=== PATIENT | male | born 1955 | race Caucasian/White ===

== ENCOUNTER 2022-10-03 14:42 | Outpatient (REF) | payer MEDICARE, MEDICAID, SELFPAY ==
[2022-10-03 09:12] LABS: Bilirubin Negative (Negative); Blood Trace-lysed (Negative); Clarity Clear (Clear); Glucose 100 mg/dL (Negative); Ketones Negative (Negative); Leukocyte Esterase Negative (Negative); Nitrite Negative (Negative); Specific Gravity >= 1.030 (1.005-1.025); Urobilinogen 0.2 mg/dL (Up to 0.2); pH 5.5 (5-8)
[2022-10-03 09:21] LABS: Bacteria Negative HPF (Negative); C & S Indicated? No; Casts Negative LPF (Negative); Crystals Negative HPF (Negative); Epithelial Cells Rare HPF (Negative); Mucus Trace (Negative); RBC 0-2 HPF (0-2); WBC 0-2 HPF (0-5)
--- OUTSIDE RECORDS SUMMARY | 2022-10-03 14:47 | XMS_ITS | Continuity of Care Document ---
Author Name Unknown Organization [facility] Address [address] [place] [address] Care Team Providers Care Oracle Soa Consultant Name Role Phone Ronen De Souza Primary Care Physician Encounter [facility] Date(s): 05/23/22 - 05/23/22 [facility] [address] [place] [address] Discharge Disposition: Home or Self Care Attending Physician: Mirza Soler DO Admitting Physician: Mirza Soler DO Allergies, Adverse Reactions, Alerts Substance Reaction Severity Status BEE VENOM PROTEIN (HONEY BEE) Unknown Active simvastatin Pain in legs Other Unknown Active losartan Muscle pain Unknown Active atorvastatin Muscle pain Unknown Active Assessment and Plan Future Appointments Future Scheduled Tests Laboratory* Creatinine 12/11/21 Immunizations Given and Recorded Vaccine Date Status Refusal Reason pneumococcal 13-valent conjugate vaccine 06/01/21 Recorded influenza virus vaccine, live 05/23/21 Recorded SARS-CoV-2 (COVID-19) mRNA BNT-162b2 vax 04/25/21 Recorded SARS-CoV-2 (COVID-19) mRNA BNT-162b2 vax 09/08/20 Recorded SARS-CoV-2 (COVID-19) mRNA BNT-162b2 vax 08/18/20 Recorded influenza, unspecified formulation 06/27/20 Record ed influenza, unspecified formulation 07/03/19 Record ed influenza, unspecified formulation 05/05/18 Record ed tetanus-diphth toxoids (Td) adult/adol 1 10/16/18 Recorded pneumococcal 23-polyvalent vaccine 07/05/08 Record ed tetanus/diphth/pertuss (Tdap) adult/adol 07/05/08 Recorded 1Result Comment: tolerated well Medications B-D UF III SHORT PEN NEED MIS B-D UF III SHORT PEN NEED MIS, See Instructions, USE 1 NEW PEN NEEDLE FOR EACH FIVE TIMES DAILY INJECTION, # 400 EA, 0 Refill(s), Pharmacy: [place] [id number] Start Date: 12/22/21 Status: Ordered dofetilide 125 mcg oral capsule 125 mcg = 1 cap, Oral, BID, In the morning Start Date: 02/19/22 Status: Ordered Eliquis 5 mg oral tablet See Instructions, Take 1 tablet by mouth twice daily, # 180 tab, 3 Refill(s), Pharmacy: [place] [id number] Start Date: 12/24/21 Status: Ordered EpiPen 2-Keith 0.3 mg injectable kit 0.3 mg = 1 EA, IM, PRN other (see comment), As needed. Start Date: 02/19/22 Status: Ordered furosemide 40 mg oral tablet See Instructions, Take 1 tablet by mouth once daily, # 90 tab, 3 Refill(s), Pharmacy: [facility] [id number] Start Date: 12/24/21 Status: Ordered HumaLOG 100 units/mL injectable solution See Instructions, 20 units with meal If you eat a light meal, take 5 units less than your usual dose and if you eat a heavy meal, take 5 units more than your usual dose. If you skip a meal or if yourBG <80 , do not take per End Start Date: 02/19/22 Status: Ordered Levemir FlexTouch 100 units/mL subcutaneous solution See Instructions, 50 units before breakfast and 50 units before bedtime Start Date: 02/19/22 Status: Ordered lisinopril 2.5 mg oral tablet 2.5 mg = 1 tab, Oral, every evening Start Date: 02/19/22 Status: Ordered LORazepam 1 mg oral tablet 1 mg = 1 tab, Oral, every night at bedtime, PRN as needed for anxiety, X 30 days, # 30 tab, 1 Refill(s), 07/21/22 15:54:00 EST, Pharmacy: [place] [id number] Start Date: 05/22/22 Stop Date: 07/21/22 Status: Ordered Metoprolol Succinate ER 25 mg oral tablet, extended release 25 mg = 1 tab, Oral, BID, 0 Refill(s) Start Date: 02/19/22 Status: Ordered nitroglycerin 0.4 mg sublingual tablet 0.4 mg = 1 tab, SL, every 5 min, PRN Chest pain, x3. Seek medical attention if chest pain not resolved Start Date: 02/19/22 Status: Ordered NovoLOG FlexPen 100 units/mL injectable solution See Instructions, Inject 15 to 30 units subcutaneously three times daily with meals. Start Date: 02/19/22 Status: Ordered omeprazole 20 mg oral delayed release capsule 1 cap, Oral, Daily, # 90 cap, 0 Refill(s), Pharmacy: [facility] Start Date: 04/03/22 Status: Ordered One Touch Verio Test Strips 1 strip(s) twice a day., Supply, See instructions Start Date: 02/19/22 Status: Ordered OneTouch Delica Lancets 33 gauge OneTouch Delica Lancets 33 gauge, See Instructions, 1 lancet twice a day diagnosis code E11.9 Start Date: 02/19/22 Status: Ordered sildenafil 20 mg oral tablet 20 mg = 1 tab, Oral, As Directed, PRN other (see comment), As needed., 0 Refill(s) Start Date: 02/19/22 Status: Ordered spironolactone 25 mg oral tablet 12.5 mg = 0.5 tab, Oral, Daily Start Date: 02/19/22 Status: Ordered tamsulosin 0.4 mg oral capsule 0.8 mg = 2 cap, Oral, Daily, # 90 cap, 3 Refill(s), Pharmacy: [facility] Start Date: 12/12/21 Status: Ordered Trulicity Pen 4.5 mg/0.5 mL subcutaneous solution 0.5 mL, Subcutaneous, every week, DOSE CHANGE., # 12 mL, 2 Refill(s), Pharmacy: [facility] Start Date: 05/05/22 Stop Date: 08/03/22 Status: Ordered Problem List Condition Confirmation Course Effective Dates Status H ealth Status Informant Anxiety Confirmed Active Asthma Confirmed Active Atrial fibrillation Confirmed 12/02/18 Active Depressive disorder Confirmed Active Impotence Confirmed Active Gastro-esophageal reflux disease with esophagitis Confirmed 04/15/18 Active Hyperlipidemia Confirmed Active Hypertensive disorder Confirmed Active Insomnia Confirmed Active Prostate cancer Confirmed Active Nicotine dependence Confirmed Active Type 2 diabetes mellitus without complication Confirmed Active Procedures Procedure Date Related Diagnosis Body Site Status Colonoscopy 10/10/21 Completed Colonoscopy 1 09/09/21 Completed Cardiac electrophysiology, a blation procedure 07/01/19 Completed Cardiac catheterization 2 05/12/19 Completed Colonoscopy 3 05/06/17 Completed EGD - Esophagogastroduodenoscopy 4 05/06/17 Completed 1hot snare polypectomy,bx of right colon polyp with placement of submucosal of tattoo 2At [facility] [place]: three vessel disease LAD, LCX and RCA. 3polyps, diverticulosis, hemorrhoids 4esophagitis Results Laboratory List Name Date Basic Metabolic Panel (BMP) 05/23/22 Most recent to oldest [Reference Range]: 1 BUN [7-18 mg/dL] 20 mg/dL *HI* (05/23/22 11:09 AM) Glucose Level [74-106 mg/dL] 107 mg/dL *HI* (05/23/22 11:09 AM) Potassium Level [3.5-5.1 mmol/L] 4.0 mmo l/L (05/23/22 11:09 AM) Sodium Level [136-145 mmol/L] 141 mmol/L (05/23/22 11:09 AM) Calcium Level [8.5-10.1 mg/dL] 8.9 mg/dL (05/23/22 11:09 AM) CO2 [21-32 mmol/L] 26 mmol/L (05/23/22 11:09 AM) eGFR Non-AA [>=60] 93 (05/23/22 11:09 AM) eGFR AA [>=60] 93 (05/23/22 11:09 AM) Chloride Level [98-107 mmol/L] 103 mmol/ L (05/23/22 11:09 AM) Creatinine Level [0.70-1.30 mg/dL] 0.89 mg/dL (05/23/22 11:09 AM) Social History Social History Type Response Tobacco Current everyday tob acco user Tobacco Use:. 4-5 cigs a day per day. Sex Male Patient Care team information Care Team Personnel Name: Ronen De Souza MD Position: Physician Member Role: Primary Care Physician Address: Address: [address] [place] [phone] [place] Care Team Related Persons Name: RADHA JORDAN Address: Home [address] [place] [phone] Name: ALFONSO JORDAN Address: Home
--- OUTSIDE RECORDS SUMMARY | 2022-10-03 14:47 | XMS_ITS | Continuity of Care Document ---
Author Name Unknown Organization [facility] Address [address] [place] [address] Care Team Providers Care Precision Structural Metal Fitter Name Role Phone Ronen De Souza Primary Care Physician [phone] Encounter [facility]_[place] Date(s): 09/27/22 - 09/27/22 [facility] [address] [place] [address] Discharge Disposition: Home or Self Care Attending Physician: Ronen De Souza MD Admitting Physician: Ronen De Souza MD Referring Physician: Ronen De Souza MD Allergies, Adverse Reactions, Alerts Substance Reaction Severity Status BEE VENOM PROTEIN (HONEY BEE) Unknown Active simvastatin Pain in legs Other Unknown Active losartan Muscle pain Unknown Active atorvastatin Muscle pain Unknown Active Adhesive Bandage Urticaria Mild Active Assessment and Plan Future Appointments Future Scheduled Tests Laboratory* Creatinine 12/11/21 Radiology* CT Neck Soft Tissue w/ Contrast 09/24/22 * CT Low Dose Lung Screening 09/24/22 Immunizations Given and Recorded Vaccine Date Status Refusal Reason influenza virus vaccine, inactivated 1, 2 09/24/22 Given pneumococcal 13-valent conjugate vaccine 06/01/21 Recorded influenza virus vaccine, live 05/23/21 Recorded SARS-CoV-2 (COVID-19) mRNA BNT-162b2 vax 04/25/21 Recorded SARS-CoV-2 (COVID-19) mRNA BNT-162b2 vax 09/08/20 Recorded SARS-CoV-2 (COVID-19) mRNA BNT-162b2 vax 08/18/20 Recorded influenza, unspecified formulation 06/27/20 Record ed influenza, unspecified formulation 07/03/19 Record ed influenza, unspecified formulation 05/05/18 Record ed tetanus-diphth toxoids (Td) adult/adol 3 4/5/19 Recorded pneumococcal 23-polyvalent vaccine 07/05/08 Record ed tetanus/diphth/pertuss (Tdap) adult/adol 07/05/08 Recorded 1Early/Late Reason: Early/Late Reason: Back-charting an earlier dose 2Result Comment: Flu ad Quad 65+. Vaccine verified with NARAYAN Isbell. Teaching done. Well tolerated by patient. 3Result Comment: tolerated well Medications albuterol 90 mcg/inh aerosol inhaler 1 Refill(s), 0 Refill(s) Start Date: 08/21/22 Status: Ordered B-D UF III SHORT PEN NEED MIS B-D UF III SHORT PEN NEED MIS, See Instructions, USE 1 NEW PEN NEEDLE FOR EACH FIVE TIMES DAILY INJECTION, # 400 EA, 0 Refill(s), Pharmacy: [facility] [place] [id number] Start Date: 12/22/21 Status: Ordered bicalutamide 50 mg oral tablet 60 EA, START TAKING TODAY, AND TAKE DAILY DURING RADIATION. YOU CAN STOP WHEN RADIATION IS COMPLETE, 0 Refill(s) Start Date: 08/21/22 Status: Ordered clotrimazole-betamethasone dipropionate 1%-0.05% topical cream 1 otis, Topical, BID, apply to affected area twice a day for two weeks. If no effect, report to PCP., # 15 g, 0 Refill(s), Pharmacy: [place] [id number] Start Date: 05/27/22 Status: Ordered dofetilide 125 mcg oral capsule 125 mcg = 1 cap, Oral, BID, In the morning Start Date: 02/19/22 Status: Ordered Eliquis 5 mg oral tablet See Instructions, Take 1 tablet by mouth twice daily, # 180 tab, 3 Refill(s), Pharmacy: [facility] Start Date: 12/24/21 Status: Ordered EpiPen 2-Keith 0.3 mg injectable kit 0.3 mg = 1 EA, IM, Once, PRN other (see comment), As needed., # 1 kits, 1 Refill(s), Pharmacy: [facility] Start Date: 09/24/22 Status: Ordered ezetimibe 10 mg oral tablet 90 EA, TAKE 1 TABLET BY MOUTH ONCE DAILY, 0 Refill(s) Start Date: 08/21/22 Status: Ordered furosemide 40 mg oral tablet See Instructions, Take 1 tablet by mouth once daily, # 90 tab, 3 Refill(s), Pharmacy: [facility] Start Date: 12/24/21 Status: Ordered HumaLOG 100 [...] per End Start Date: 02/19/22 Status: Ordered insulin, needles 4 Refill(s), Use to inject 5 times daily. DX:E11.69, 0 Refill(s) Start Date: 08/21/22 Status: Ordered Levemir FlexTouch 100 units/mL subcutaneous solution See Instructions, 50 units before breakfast and 50 units before bedtime Start Date: 02/19/22 Status: Ordered lisinopril 2.5 mg oral tablet 2.5 mg = 1 tab, Oral, every evening Start Date: 02/19/22 Status: Ordered LORazepam 1 mg oral tablet 1 mg = 1 tab, Oral, every day at bedtime, PRN as needed for anxiety, # 30 tab, 0 Refill(s), Pharmacy: [facility] [place] [id number] Start Date: 09/14/22 Status: Ordered Metoprolol Succinate ER 25 mg oral tablet, extended release 25 mg = 1 tab, Oral, BID, # 180 tab, 3 Refill(s), Pharmacy: [facility] [place] [id number] Start Date: 06/18/22 Status: Ordered nitroglycerin 0.4 mg sublingual tablet [...] 1 cap, Oral, Daily, # 90 cap, 3 Refill(s), Pharmacy: [facility] [place] [id number] Start Date: 09/27/22 Status: Ordered One Touch Verio Test Strips 1 strip(s) twice a day., Supply, See instructions Start Date: 02/19/22 Status: Ordered sildenafil 20 mg oral tablet 20 mg = 1 tab, Oral, As Directed, PRN other (see comment), As needed., 0 Refill(s) Start Date: 02/19/22 Status: Ordered spironolactone 25 mg oral tablet 12.5 mg = 0.5 tab, Oral, Daily, # 45 tab, 3 Refill(s), Pharmacy: [facility] Start Date: 09/27/22 Status: Ordered tamsulosin 0.4 mg oral capsule 0.8 mg = 2 cap, Oral, Daily, # 180 cap, 3 Refill(s), Pharmacy: [facility] Start Date: 06/12/22 Status: Ordered Trulicity Pen 1.5 mg/0.5 mL subcutaneous solution 1.5 mg = 0.5 mL, Subcutaneous, every week, rotate injection sites, # 2 mL, 3 Refill(s), Pharmacy: [facility] Start Date: 08/09/22 Status: Ordered Trulicity Pen 3 mg/0.5 mL subcutaneous solution 3 mg = 0.5 mL, Subcutaneous, every week, rotate injection sites, # 2 mL, 3 Refill(s), Pharmacy: [facility] Start Date: 08/09/22 Status: Ordered Trulicity Pen 4.5 mg/0.5 mL subcutaneous solution 0.5 mL, Subcutaneous, every week, DOSE CHANGE., # 12 mL, 2 Refill(s), Pharmacy: [facility] Start Date: 05/05/22 Stop Date: 08/03/22 Status: Ordered Problem List Condition Confirmation Course Effective Dates Status H ealth Status Informant Anxiety Confirmed Active Asthma Confirmed Active Atrial fibrillation Confirmed 12/02/18 Active Atrial fibrillation with rapid ventricular response Confirmed 11/25/18 Active Atypical chest pain Confirmed 11/02/18 Active Cerebrovascular accident Confirmed 05/12/19 Active Depressive disorder Confirmed Active Dizziness Confirmed 11/02/18 Active Impotence Confirmed Active Fatigue Confirmed 11/02/18 Active Gastro-esophageal reflux disease with esophagitis Confirmed 04/15/18 Active Heart failure with reduced ejection fraction Confirmed 05/11/19 Active Hyperlipidemia Confirmed Active Hypertensive disorder Confirmed Active Insomnia Confirmed Active Ischemic myocardial dysfunction Confirmed 06/27/19 Active Prostate cancer Confirmed Active Nicotine dependence Confirmed Active Smoker Confirmed 11/02/18 Active Type 2 diabetes mellitus Confirmed 11/02/18 Active Type 2 diabetes mellitus without complication Confirmed Active Procedures Procedure Date Related Diagnosis Body Site Status Colonoscopy 10/10/21 Completed Colonoscopy 1 09/09/21 Completed Cardiac electrophysiology, a blation procedure 07/01/19 Completed Cardiac catheterization 2 05/12/19 Completed Colonoscopy 3 05/06/17 Completed EGD - Esophagogastroduodenoscopy 4 05/06/17 Completed 1hot snare polypectomy,bx of right colon polyp with placement of submucosal of tattoo 2[place] [facility] [place] three vessel disease LAD, LCX and RCA. 3polyps, diverticulosis, hemorrhoids 4esophagitis Results Laboratory List Name Date Basic Metabolic Panel 09/27/22 Hemoglobin A1c 09/27/22 Most recent to oldest [Reference Range]: 1 BUN [7-18 mg/dL] 15 mg/dL (09/27/22 2:23 PM) Glucose Level [74-106 mg/dL] 206 mg/dL *HI* (09/27/22 2:23 PM) Potassium Level [3.5-5.1 mmol/L] 3.3 mmo l/L *LOW* (09/27/22 2:23 PM) Sodium Level [136-145 mmol/L] 139 mmol/L (09/27/22 2:23 PM) Calcium Level [8.5-10.1 mg/dL] 9.0 mg/dL (09/27/22 2:23 PM) CO2 [21-32 mmol/L] 29 mmol/L (09/27/22 2:23 PM) eGFR Non-AA [>=60] 71 (09/27/22 2:23 PM) eGFR AA [>=60] 71 (09/27/22 2:23 PM) Hemoglobin A1c [4.0-6.0 %] 7.1 % *HI* (09/27/22 2:23 PM) Chloride Level [98-107 mmol/L] 102 mmol/ L (09/27/22 2:23 PM) Creatinine Level [0.70-1.30 mg/dL] 1.12 mg/dL (09/27/22 2:23 PM) Social History Social History Type Response Tobacco Current everyday tob acco user Tobacco Use:. 4-5 cigs a day per day. Sex Male Patient Care team information Care Team Personnel Name: Ronen De Souza MD Position: Physician Member Role: Primary Care Physician Address: Address: [address] [place] [id number] Care Team Related Persons Name: ALFONSO JORDAN Address: Home
--- OUTSIDE RECORDS SUMMARY | 2022-10-03 14:47 | XMS_ITS | Continuity of Care Document ---
Author Name Unknown Organization [facility] Address [address] [place] [address] Care Team Providers Care Mining Engineer Name Role Phone Ronen De Souza Primary Care Physician Encounter [facility] Date(s): 07/20/22 - 07/20/22 [facility] [address] [place] [address] Discharge Disposition: Home or Self Care Attending Physician: Silverio Barajas MD Admitting Physician: Silverio Barajas MD Referring Physician: Silverio Barajas MD Allergies, Adverse Reactions, Alerts Substance Reaction Severity Status BEE VENOM PROTEIN (HONEY BEE) Unknown Active simvastatin Pain in legs Other Unknown Active losartan Muscle pain Unknown Active atorvastatin Muscle pain Unknown Active Assessment and Plan Future Appointments Diagnostic Tests Pending * Testosterone [facility] 07/20/22 * PSA Ultrasensitive, S VARGAS 07/20/22 Future Scheduled Tests Laboratory* Creatinine 12/11/21 Immunizations [...] INJECTION, # 400 EA, 0 Refill(s), Pharmacy: [facility] [id number] Start Date: 12/22/21 Status: Ordered clotrimazole-betamethasone dipropionate 1%-0.05% topical cream 1 otis, Topical, BID, apply to affected area twice a day for two weeks. If no effect, report to PCP., # 15 g, 0 Refill(s), Pharmacy: [facility] [place] [id number] Start Date: 05/27/22 Status: Ordered dofetilide 125 mcg oral capsule 125 mcg = 1 cap, Oral, BID, In the morning Start Date: 02/19/22 Status: Ordered Eliquis 5 mg oral tablet See Instructions, Take 1 tablet by mouth twice daily, # 180 tab, 3 Refill(s), Pharmacy: [facility] [place] [id number] Start Date: 12/24/21 Status: Ordered EpiPen 2-Keith 0.3 mg injectable kit 0.3 mg = 1 EA, IM, PRN other (see comment), As needed. Start Date: 02/19/22 Status: Ordered furosemide 40 mg oral tablet See Instructions, Take 1 tablet by mouth once daily, # 90 tab, 3 Refill(s), Pharmacy: [facility] [id number] Start Date: 12/24/21 Status: Ordered HumaLOG 100 [...] tab, 1 Refill(s), 07/21/22 15:54:00 EST, Pharmacy: [facility] [place] [id number] Start Date: 05/22/22 Stop Date: 07/21/22 Status: Ordered Metoprolol Succinate ER 25 mg oral tablet, extended release 25 mg = 1 tab, Oral, BID, # 180 tab, 3 Refill(s), Pharmacy: [facility] [id number] Start Date: 06/18/22 Status: Ordered nitroglycerin 0.4 [...] Daily, # 90 cap, 0 Refill(s), Pharmacy: [facility] [place] [id number] Start Date: 06/24/22 Status: Ordered One Touch Verio Test Strips [...] Daily, # 180 cap, 3 Refill(s), Pharmacy: [facility] [place] [id number] Start Date: 06/12/22 Status: Ordered Trulicity Pen 4.5 mg/0.5 mL subcutaneous solution 0.5 mL, Subcutaneous, every week, DOSE CHANGE., # 12 mL, 2 Refill(s), Pharmacy: [facility] [id number] Start Date: 05/05/22 Stop Date: 08/03/22 Status: [...] with placement of submucosal of tattoo 2At [facility] [place]: three vessel disease LAD, LCX and RCA. 3polyps, diverticulosis, hemorrhoids 4esophagitis Results Laboratory List Name Date CBC w/ Diff 07/20/22 Comprehensive Metabolic Panel 07/20/22 Automated Diff 07/20/22 Most recent to oldest [Reference Range]: 1 WBC [5.0-10.0 x10^3/mcL] 8.8 x10^3/mcL (07/20/22 12:12 PM) RBC [4.6-6.0 x10^6/mcL] 5.3 x10^6/mcL (07/20/22 12:12 PM) Neutro Auto [40.0-75.0 %] 63.9 % (07/20/22 12:12 PM) Lymph Auto [20.0-50.0 %] 26.3 % (07/20/22 12:12 PM) [place]osa Auto [2.0-15.0 %] 6.5 % (07/20/22 12:12 PM) Basophil Auto [0.0-1.0 %] 0.5 % (07/20/22 12:12 PM) BUN [7-18 mg/dL] 15 mg/dL (07/20/22 12:12 PM) Glucose Level [74-106 mg/dL] 223 mg/dL *HI* (07/20/22 12:12 PM) Potassium Level [3.5-5.1 mmol/L] 3.0 mmo l/L *LOW* (07/20/22 12:12 PM) MCV [80.0-96.0] 88.2 (07/20/22 12:12 PM) AST [15-37 unit/L] 13 unit/L *LOW* (07/20/22 12:12 PM) ALT [16-63 unit/L] 17 unit/L (07/20/22 12:12 PM) MCHC [31.0-35.0 g/dL] 33.2 g/dL (07/20/22 12:12 PM) Sodium Level [136-145 mmol/L] 138 mmol/L (07/20/22 12:12 PM) Hct [41.0-51.0 %] 46.4 % (07/20/22 12:12 PM) Calcium Level [8.5-10.1 mg/dL] 8.2 mg/dL *LOW* (07/20/22 12:12 PM) Albumin Level [3.4-5.0 g/dL] 3.2 g/dL *LOW* (07/20/22 12:12 PM) Protein Total [6.4-8.2 g/dL] 7.4 g/dL (07/20/22 12:12 PM) MCH [26.0-32.0 pg] 29.3 pg (07/20/22 12:12 PM) Neutro Absolute 5.6 x10^3/mcL *NA* (07/20/22 12:12 PM) Bilirubin Total [0.2-1.0 mg/dL] 0.3 mg/d L (07/20/22 12:12 PM) Hgb [14.0-18.0 g/dL] 15.4 g/dL (07/20/22 12:12 PM) Alk Phos [46-146 unit/L] 145 unit/L (07/20/22 12:12 PM) Platelets [130-450 x10^3/mcL] 268 x10^3/ mcL (07/20/22 12:12 PM) CO2 [21-32 mmol/L] 25 mmol/L (07/20/22 12:12 PM) eGFR Non-AA [>=60] 78 (07/20/22 12:12 PM) eGFR AA [>=60] 78 (07/20/22 12:12 PM) Chloride Level [98-107 mmol/L] 102 mmol/ L (07/20/22 12:12 PM) RDW-CV [11.5-17.0 %] 14.2 % (07/20/22 12:12 PM) Imm Gran Auto [0.0-0.9 %] 0.5 % (07/20/22 12:12 PM) Creatinine Level [0.70-1.30 mg/dL] 1.04 mg/dL (07/20/22 12:12 PM) Eos, Auto [1.0-6.0 %] 2.3 % (07/20/22 12:12 PM) Social History Social History Type Response Tobacco Current everyday tob acco user Tobacco Use:. 4-5 cigs a day per day. Sex Male Patient Care team information Personnel Name: Ronen De Souza MD Address: Address: [address] [place] [phone]
--- OUTSIDE RECORDS SUMMARY | 2022-10-03 14:47 | XMS_ITS | Continuity of Care Document ---
Author Name Unknown Organization [facility] Address [address] [place] [address] Care Team Providers Care Remittance Clerk Name Role Phone Ronen De Souza Primary Care Physician Encounter [facility] Date(s): 05/24/22 - 05/24/22 [facility] [address] [place] [address] Encounter Diagnosis Prostate cancer(Discharge Diagnosis) - 05/24/22 Discharge Disposition: Home or Self Care Attending Physician: Dax Kohler MD Admitting Physician: Dax Kohler MD Referring Physician: Dax Kohler MD Allergies, Adverse Reactions, Alerts Substance Reaction [...] INJECTION, # 400 EA, 0 Refill(s), Pharmacy: [facility] [id number] Start Date: 12/22/21 Status: Ordered dofetilide 125 mcg oral capsule 125 mcg = 1 cap, Oral, BID, In the morning Start Date: 02/19/22 Status: Ordered Eliquis 5 mg oral tablet See Instructions, Take 1 tablet by mouth twice daily, # 180 tab, 3 Refill(s), Pharmacy: [facility] [place] [address] Start Date: 12/24/21 Status: Ordered EpiPen 2-Keith 0.3 mg injectable kit 0.3 mg = 1 EA, IM, PRN other (see comment), As needed. Start Date: 02/19/22 Status: Ordered furosemide 40 mg oral tablet See Instructions, Take 1 tablet by mouth once daily, # 90 tab, 3 Refill(s), Pharmacy: [facility] [place] [address] Start Date: 12/24/21 Status: Ordered HumaLOG 100 [...] tab, 1 Refill(s), 07/21/22 15:54:00 EST, Pharmacy: [place] [address] Start Date: 05/22/22 Stop Date: 07/21/22 Status: [...] Daily, # 90 cap, 0 Refill(s), [facility] Start Date: 04/03/22 Status: Ordered One Touch [...] Daily, # 90 cap, 3 Refill(s), Pharmacy: [facility] Start Date: 12/12/21 Status: Ordered Trulicity Pen 4.5 mg/0.5 mL subcutaneous solution 0.5 mL, Subcutaneous, every week, DOSE CHANGE., # 12 mL, 2 Refill(s), [facility] Start Date: 05/05/22 Stop Date: 08/03/22 Status: [...] Site Status Colonoscopy 10/10/21 Completed Colonoscopy 1 2/27/22 Completed Cardiac electrophysiology, a blation procedure 07/01/19 Completed Cardiac catheterization 2 05/12/19 Completed Colonoscopy 3 05/06/17 Completed EGD - Esophagogastroduodenoscopy 4 05/06/17 Completed 1hot snare polypectomy,bx of right colon polyp with placement of submucosal of tattoo 2At [facility] [place]: three vessel disease LAD, LCX and RCA. 3polyps, diverticulosis, hemorrhoids 4esophagitis Social History Social History Type Response Tobacco Current everyday tob acco user Tobacco Use:. 4-5 cigs a day per day. Sex Male Patient Care team information Care Team Personnel Name: Ronen De Souza MD Position: Physician Member Role: Primary Care Physician Address: Address: [address] [place] [phone] Care Team Related Persons Name: RADHA JORDAN Address: Home [address] [place] [phone] Name: ALFONSO JORDAN Address: [place]
== END 2022-10-03 14:43 | disposition home or self-care (01) ==
LOC: LBN 14:42
PROVIDERS: Visit Provider Radiology Radiation Oncology
DX: C61 Malignant neoplasm of prostate (principal)
CPT/HCPCS: 81003; 81015

== ENCOUNTER 2022-11-01 16:05 | Outpatient (CLI) | payer MEDICARE, MEDICAID, SELFPAY ==
[2022-11-01 10:04] LABS: ALT 31 U/L (16-63); AST 15 U/L (15-37); Albumin 3.4 g/dL (3.4-5.0); Alkaline Phosphatase 146 U/L (46-116); Bilirubin, Direct 0.1 mg/dL (0.0-0.2); Bilirubin, Total 0.3 mg/dL (0.2-1.0); Total Protein 7.7 g/dL (6.4-8.2)
== END 2022-11-01 16:06 | disposition home or self-care (01) ==
LOC: LBO 16:06
PROVIDERS: Visit Provider Radiology Radiation Oncology
DX: C61 Malignant neoplasm of prostate (principal)
CPT/HCPCS: 36415; 80076

== ENCOUNTER 2024-01-13 12:02 | Emergency (ER) | payer MEDICARE, SELFPAY ==
[2024-01-13] VITALS (47 sets, daily range): BP systolic 74–144; BP diastolic 39–110; PULSE 60–155; RESP 14–30; O2SAT 96
--- NOTE | 2024-01-13 12:00 | RT.EKG_ITS ---
APPROVED REPORT Exam: Resting ECG Reason for Exam: increased heart rate Patient Location: E HR:146 bpm ECG Measurements Heart Rate 146 [place]IS [place] [id number] P [id number] QRSd 94 QRS -55 QT 334 T 54 QTc 521 Conclusion Atrial fibrillation 146 long QTC 521
--- NOTE | 2024-01-13 12:00 | DI.RAD_ITS ---
Exam(s) XR CHEST 2V PA LATERAL EXAM: XR CHEST 2V PA LATERAL CLINICAL HISTORY: afib w rvr. TECHNIQUE: 2D digital imaging was performed. COMPARISON: No exams were available for comparison FINDINGS: 2 views: Heart size is normal. The mediastinum is not widened. Lungs are clear. No infiltrates nor pleural effusions. IMPRESSION: No acute pulmonary findings. DATA REPOSITORY: RADIATION DOSE DELIVERED:
[2024-01-13 12:29] LABS: Abs Immature Grans 0.03 10^3/uL (0.0-0.06); Absolute Basophil Count 0.05 10^3/uL (0.0-0.2); Absolute Eosinophil Count 0.19 10^3/uL (0.0-0.7); Absolute Lymphocyte Count 1.53 10^3/uL (1.2-3.4); Absolute Monocyte Count 0.76 10^3/uL (0.1-0.8); Absolute Neutrophil Count 5.47 10^3/uL (1.2-6.7); Basophils % 0.6 %; Eosinophils % 2.4 %; HCT 44.1 % (40.0-50.0); HGB 14.7 g/dL (13.5-17.5); Immature Grans % 0.4 %; Lymphocytes % 19.1 %; MCH 30.1 pg (27.0-33.0); MCHC 33.3 % (32.0-36.0); MCV 90 fL (80-95); MPV 9.6 fL (8.0-11.0); Monocytes % 9.5 %; Platelet Count 227 10^3/uL (130-400); RBC 4.89 10^6/uL (4.36-5.78); RDW 13.7 % (11.8-14.1); WBC 8.03 10^3/uL (4.4-10.8)
--- NOTE | 2024-01-13 12:30 | ED.GENADUL_ITS ---
Discharge Plan Discharge Details Chief Complaint: Arrhythmia Primary Care Provider: Unknown,Unknown ED Provider: Reta Watkisn Home Meds and New Rx's Prescriptions: No Action albuterol sulfate 90 mcg/actuation HFA aerosol inhaler 2 puff inhalation Q6H PRN clotrimazole-betameth dip-zinc 1-0.05-20 % combo pack See Rx Instructions topical .COMPLEX Rx Instructions: apply CLOTRIMAZOLE/BETAMETHASONE CREAM twice daily: use ZINC OXIDE PASTE as needed/as directed topical dofetilide 125 mcg capsule 125 mcg PO BID Eliquis 5 mg tablet 5 mg PO BID epinephrine [EpiPen 2-Keith] 0.3 mg/0.3 mL auto-injector 0.3 mg IM ONCE PRN Rx Instructions: as a single dose; may repeat once ezetimibe 10 mg tablet 10 mg PO DAILY furosemide 40 mg tablet 40 mg PO DAILY insulin detemir U-100 100 unit/mL (3 mL) insulin pen 50 unit subcut BID lisinopril 2.5 mg tablet 2.5 mg PO DAILY lorazepam 1 mg tablet 1 mg PO QHS PRN metoprolol succinate 25 mg tablet extended release 24 hr 25 mg PO DAILY nitroglycerin 0.4 mg tablet, sublingual 0.4 mg sublingual Q5M PRN Rx Instructions: do not exceed 3 doses per episode insulin aspart U-100 [Novolog FlexPen U-100 Insulin] 100 unit/mL (3 mL) insulin pen See Rx Instructions subcut DAILY Rx Instructions: see instructions omeprazole 20 mg capsule,delayed release(DR/EC) 20 mg PO DAILY (DME) blood sugar diagnostic Strip See Rx Instructions .Route Rx Instructions: As directed sildenafil (pulm.hypertension) 20 mg tablet 20 mg PO DIRECTED Rx Instructions: administer doses at least 4-6 hours apart spironolactone 25 mg tablet 12.5 mg PO DAILY tacrolimus 0.1 % ointment 1 applic topical BID tamsulosin 0.4 mg capsule 0.8 mg PO DAILY Trulicity 4.5 mg/0.5 mL pen injector 4.5 mg subcut QWEEK celecoxib [Celebrex] 200 mg capsule 200 mg PO DAILY oxycodone-acetaminophen [Percocet] 5-325 mg tablet 1 tab PO TID PRN HPI General Date/Time Provider Initiated Documentation: 01/13/24 12:04 . HPI Narrative: Hilton is a 69-year-old male with history of A-fib with RVR, prostate cancer, diabetes, and CVA/TIA who presents to the emergency department today accompanied by his daughter for evaluation of shortness of breath with dizziness. He reports that symptoms started approximately 1 week ago. His daughter found that 2 days ago and has been trying to convince him to come to the emergency department since then. He denies fever, congestion, unusual headache, chest pain, palpitations, nausea/vomiting, change in bowel or bladder function, abdominal pain, black/tarry stools. He is treated with dofetilide, metoprolol, Eliquis. He does admit to intermittent constipation attributed to opioid use for chronic back pain. No history of GI bleeds. Related Data Home Medications Medication Instructions Recorded Confirmed albuterol sulfate 90 mcg/actuation 2 puff inhalation Q6H PRN 08/12/23 08/28/23 aerosol inhaler apixaban 5 mg tablet (Eliquis) 5 mg PO BID 08/12/23 08/28/23 blood sugar diagnostic 08/12/23 08/28/23 clotrimazole 1 %-betamethasone See Rx Instructions topical 08/12/23 08/28/23 0.05 % cream-zinc ox 20 % paste .COMPLEX topical dofetilide 125 mcg capsule 125 mcg PO BID 08/12/23 08/28/23 dulaglutide 4.5 mg/0.5 mL 4.5 mg subcut QWEEK 08/12/23 08/28/23 subcutaneous pen injector (Trulicity) epinephrine 0.3 mg/0.3 mL 0.3 mg IM ONCE PRN 08/12/23 08/28/23 injection, auto-injector (EpiPen 2-Keith) ezetimibe 10 mg tablet 10 mg PO DAILY 08/12/23 08/28/23 furosemide 40 mg tablet 40 mg PO DAILY 08/12/23 08/28/23 insulin aspart U-100 100 unit/mL See Rx Instructions subcut DAILY 08/12/23 08/28/23 (3 mL) subcutaneous pen (Novolog FlexPen U-100 Insulin aspart) insulin detemir U-100 100 unit/mL 50 unit subcut BID 08/12/23 08/28/23 (3 mL) subcutaneous pen lisinopril 2.5 mg tablet 2.5 mg PO DAILY 08/12/23 08/28/23 lorazepam 1 mg tablet 1 mg PO QHS PRN 08/12/23 08/28/23 metoprolol succinate 25 mg 25 mg PO DAILY 08/12/23 08/28/23 tablet,extended release 24 hr nitroglycerin 0.4 mg sublingual 0.4 mg sublingual Q5M PRN 08/12/23 08/28/23 tablet omeprazole 20 mg capsule,delayed 20 mg PO DAILY 08/12/23 08/28/23 release sildenafil (pulm.hypertension) 20 20 mg PO DIRECTED 08/12/23 08/28/23 mg tablet spironolactone 25 mg tablet 12.5 mg PO DAILY 08/12/23 08/28/23 tacrolimus 0.1 % topical ointment 1 applic topical BID 08/12/23 08/28/23 tamsulosin 0.4 mg capsule 0.8 mg PO DAILY 08/12/23 08/28/23 celecoxib 200 mg capsule (Celebrex) 200 mg PO DAILY 08/28/23 08/28/23 oxycodone-acetaminophen 5 mg-325 1 tab PO TID PRN 08/28/23 08/28/23 mg tablet (Percocet) Allergies Allergy/AdvReac Type Severity Reaction Status Date / Time adhesive Allergy Unknown Other (See Verified 08/28/23 07:19 Comment) bee venom protein (honey bee) Allergy Unknown Anaphylaxis Verified 08/28/23 07:19 atorvastatin AdvReac Unknown Other (See Verified 08/28/23 07:19 Comment) losartan AdvReac Unknown Other (See Verified 08/28/23 07:19 Comment) simvastatin AdvReac Unknown Other (See Verified 08/28/23 07:19 Comment) General Stated Complaint: Arrhythmia MIGUEL: 2 Review of Systems Narrative: see HPI Exam Const General: cooperative, healthy appearing, comfortable, no acute distress and well developed Nutritional Appearance: average body habitus HENMT Head: normal to inspection Eyes Conjunctivae: conjunctival abnormality and other (mild conjunctival pallor) Neck Neck: normal visual inspection and no JVD Resp Effort & Inspection: normal respiratory effort and able to speak in complete sentences Auscultation: clear to auscultation bilaterally Cardio Jugular venous pressure: no JVD Rate: tachycardic Rhythm: abnormal rhythm irregularly irregular Pulses: radial pulses present GI Inspection: normal to inspection and non-distended Palpation: soft and nontender Extrem General: no pedal edema Course Vital Signs Vital signs: Vital Signs Pulse 154 H 01/13/24 12:14 Respiratory Rate 18 01/13/24 12:14 Blood Pressure 128/94 H 01/13/24 12:14 Pulse Oximetry 96 01/13/24 12:14 Pulse 154 H 01/13/24 12:14 Respiratory Rate 18 01/13/24 12:14 Respiratory Effort Normal 01/13/24 12:21 Blood Pressure 128/94 H 01/13/24 12:14 Pulse Oximetry 96 01/13/24 12:14 Oxygen Delivery Method Room Air 01/13/24 12:14 Oxygen Flow Rate 0 01/13/24 12:14 Medical Decision Making Hilton is a 69-year-old male with history of A-fib with RVR, prostate cancer, diabetes, and CVA/TIA who presents to the emergency department today accompanied by his daughter for evaluation of shortness of breath with dizziness. He reports that symptoms started approximately 1 week ago. His daughter found that 2 days ago and has been trying to convince him to come to the emergency department since then. He denies fever, congestion, unusual headache, chest pain, palpitations, nausea/vomiting, change in bowel or bladder function, abdominal pain, black/tarry stools. He is treated with dofetilide, metoprolol, Eliquis. He does admit to intermittent constipation attributed to opioid use for chronic back pain. No history of GI bleeds. Physical exam reassuring. Irregularly irregular heart rate with tachycardia heart rate in the 130s to 140s noted. Patient is alert and oriented, no acute distress. Easy work of breathing, lung sounds clear bilaterally. Abdomen soft, nondistended, nontender to palpation. No obvious JVD or pedal edema noted. DDx includes but is not limited to: Paroxysmal A-fib, occult infection such as pneumonia, CHF, ACS, electrolyte imbalance, dehydration, thyroid dysfunction Upon arrival to the emergency department Hilton was found to be in A-fib with RVR. Discussed CODE STATUS, patient confirms he is full code. Metoprolol boluses of 2.5 mg followed by 5 mg administered without rate control, however patient did report that his shortness of breath and dizziness fully resolved aft er receiving his medications. A 25 mg IV push diltiazem bolus was given with temple to A-fib with rate 77. QTc now 496. I did review medical records from [facility] [place], office visit from 06/20/2023. Patient had an ablation performed on 07/02/2019. His most received echo showed EF 69%. Previous labs showed unremarkable BMP. Patient does have history of mixed cardiomyopathy, paroxysmal A-fib, DM, HTN, chronic opioid use due to back pain. Previous EKG (06/20/23) showed normal sinus rhythm with QTc 452. I independently interpreted the following tests: EKG shows A-fib with RVR, rate 146. Prolonged QTc, 521. CBC, CMP, TSH, troponin all reassuring. Chest x-ray performed, no acute cardiopulmonary findings. Overall workup today reassuring. Rate was able to be successfully controlled without negative sequela. Patient does have follow-up with cardiology, daughter was able to schedule follow-up appointment next week with cardiology, awaiting follow-up appointment with EP. Reviewed discharge instructions with patient, including red flags indicate need for return to emergency care. He is agreeable to plan of care. Imaging Data Radiologic Study: Radiologist's impression: Exam(s) XR CHEST 2V PA LATERAL EXAM: XR CHEST 2V PA LATERAL CLINICAL HISTORY: afib w rvr. TECHNIQUE: 2D digital imaging was performed. COMPARISON: No exams were available for comparison FINDINGS: 2 views: Heart size is normal. The mediastinum is not widened. Lungs are clear. No infiltrates nor pleural effusions. IMPRESSION: No acute pulmonary findings. Quality:SDOH Health Related Social Needs: No Data to Display PFSH All Active Problems (Updated 08/28/23 @ 09:22 by Jeremi Ramirez DO) Lumbar radiculopathy (Acute) Medical History (Updated 08/28/23 @ 09:22 by Jeremi Ramirez DO) Aftercare following left elbow joint replacement surgery History of transesophageal echocardiography (IVÁN) History of cardioversion Type 2 diabetes mellitus Smoker Prostate cancer Nicotine dependence Long-term use of high-risk medication Ischemic myocardial dysfunction Insomnia Impotence Hypertensive disorder Hyperlipemia Heart failure with reduced ejection fraction GERD (gastroesophageal reflux disease) Fatigue Dizziness Depressive disorder CVA (cerebral vascular accident) Cardiomyopathy Atypical chest pain Atrial fibrillation with rapid ventricular response Asthma Anxiety Surgical History History of esophagogastroduodenoscopy (EGD) Hx of cardiac cath H/O cardiac radiofrequency ablation H/O colonoscopy Family History (Updated 08/12/23 @ 14:14 by Veto French RN) Sister Diabetes Brother Myocardial infarct Father Myocardial infarct Sister Suicide Mother Suicide Social History Smoking/Tobacco Use Status: Current every day Tobacco Type: cigarettes Smoking packs per day: 0.25 Smoking cigarettes per day: 5.0 Smoking risk assessment performed?: Yes Alcohol Intake: former Year quit: 2012 Drug use: Daily Substance use type: marijuana Housing: house
[2024-01-13] MEDS: Metoprolol 5 MG/5 ML VIAL 2.5 MG IVP (12:35)
[2024-01-13 12:54] LABS: ALT 27 U/L (16-63); AST 12 U/L (15-37); Albumin 3.4 g/dL (3.4-5.0); Alkaline Phosphatase 159 U/L (46-116); Anion Gap 9.6 mmol/L (3-11); BUN 18 mg/dL (7-18); Bilirubin, Total 0.36 mg/dL (0.2-1.0); CO2 26.4 mmol/L (21.0-32.0); Chloride 105 mmol/L (98-107); Estimated GFR 80.47 (mL/min/1.73m2); Glucose 94 mg/dL (74-106); Potassium 3.7 mmol/L (3.5-5.1); Sodium 141 mmol/L (136-145); TSH (W/Ref FT4) 1.36 uIU/mL (0.36-3.74); Total Protein 7.2 g/dL (6.4-8.2); Troponin I < 50 ng/L (< or =60)
[2024-01-13] MEDS: Metoprolol 5 MG/5 ML VIAL IVP (13:05)
[2024-01-13] MEDS: dilTIAZem 25 MG/5 ML VIAL IVP (13:28)
--- NOTE | 2024-01-13 13:30 | RT.EKG_ITS ---
APPROVED REPORT Exam: Resting ECG Reason for Exam: ireg heart rate Patient Location: E HR:77 bpm ECG Measurements Heart Rate 77 AXIS HI [id number] P [id number] QRSd 97 QRS -54 QT 431 T 11 QTc 496 Conclusion Atrial fibrillation 77 no stemi
== END 2024-01-13 15:00 | disposition home or self-care (01) ==
PROVIDERS: Emergency Provider Nurse Practitioner Family
DX: I48.91 Unspecified atrial fibrillation (principal); R06.02 Shortness of breath; R42 Dizziness and giddiness; F17.200 Nicotine dependence, unspecified, uncomplicated
CPT/HCPCS: 80053; 93005; 96374; 96375; 96376; 99284; 71046; 84443; 84484; 85025; 93010; 99283

== ENCOUNTER 2024-01-17 15:08 | Emergency (ER) | payer MEDICARE, SELFPAY ==
[2024-01-17] VITALS (62 sets, daily range): BP systolic 75–147; BP diastolic 36–122; PULSE 69–146; RESP 11–32; TEMP 36.4; O2SAT 93–97
--- NOTE | 2024-01-17 15:00 | RT.EKG_ITS ---
APPROVED REPORT Exam: Resting ECG Reason for Exam: A-Fib Patient Location: E HR:128 bpm ECG Measurements Heart Rate 128 AXIS CA [id number] P [id number] QRSd 93 QRS -52 QT 330 T 78 QTc 482 Conclusion Atrial fibrillation RVR 128 no stemi
--- NOTE | 2024-01-17 15:30 | DI.RAD_ITS ---
Exam(s) XR PORTABLE CHEST AP EXAM: XR PORTABLE CHEST AP CLINICAL HISTORY: arrhythmia. TECHNIQUE: 2D digital imaging was performed. COMPARISON: CR XR CHEST 2V PA LATERAL from 01/13/2024 FINDINGS: Single AP portable view. Heart size is upper normal. The mediastinum is not widened. There is now mild infiltrate in left lung base. No obvious pleural effusions on this single view meenakshi dy. Right lung remains clear. IMPRESSION: Left lung base infiltrate. DATA REPOSITORY: RADIATION DOSE DELIVERED:
--- NOTE | 2024-01-17 15:35 | ED.GENADUL_ITS ---
Discharge Plan Disposition Patient Disposition: Home Condition: Stable Discharge Details Clinical Impression: Atrial fibrillation with rapid ventricular response Primary Care Provider: Unknown,Unknown ED Provider: Toño Sanford Home Meds and New Rx's Prescriptions: Continued albuterol sulfate 90 mcg/actuation HFA aerosol inhaler 2 puff inhalation Q6H PRN clotrimazole-betameth dip-zinc 1-0.05-20 % combo pack See Rx Instructions topical .COMPLEX Rx Instructions: apply CLOTRIMAZOLE/BETAMETHASONE CREAM twice daily: use ZINC OXIDE PASTE as needed/as directed topical dofetilide 125 mcg capsule 125 mcg PO BID Eliquis 5 mg tablet 5 mg PO BID epinephrine [EpiPen 2-Keith] 0.3 mg/0.3 mL auto-injector 0.3 mg IM ONCE PRN Rx Instructions: as a single dose; may repeat once ezetimibe 10 mg tablet 10 mg PO DAILY furosemide 40 mg tablet 40 mg PO DAILY insulin detemir U-100 100 unit/mL (3 mL) insulin pen 50 unit subcut BID lisinopril 2.5 mg tablet 2.5 mg PO DAILY lorazepam 1 mg tablet 1 mg PO QHS PRN metoprolol succinate 25 mg tablet extended release 24 hr 50 mg PO BID nitroglycerin 0.4 mg tablet, sublingual 0.4 mg sublingual Q5M PRN Rx Instructions: do not exceed 3 doses per episode insulin aspart U-100 [Novolog FlexPen U-100 Insulin] 100 unit/mL (3 mL) insulin pen See Rx Instructions subcut DAILY Rx Instructions: see instructions omeprazole 20 mg capsule,delayed release(DR/EC) 20 mg PO DAILY (DME) blood sugar diagnostic Strip See Rx Instructions .Route Rx Instructions: As directed sildenafil (pulm.hypertension) 20 mg tablet 20 mg PO DIRECTED Rx Instructions: administer doses at least 4-6 hours apart spironolactone 25 mg tablet 12.5 mg PO DAILY tacrolimus 0.1 % ointment 1 applic topical BID tamsulosin 0.4 mg capsule 0.8 mg PO DAILY Trulicity 4.5 mg/0.5 mL pen injector 4.5 mg subcut QWEEK celecoxib [Celebrex] 200 mg capsule 200 mg PO DAILY oxycodone-acetaminophen [Percocet] 5-325 mg tablet 1 tab PO TID PRN Discharge Instructions Instructions: Atrial fibrillation, Heart failure and atrial fibrillation Additional Instructions: You were seen in the emergency department for your atrial fibrillation with rapid ventricular response, your RVR responded to 1 dose of diltiazem with good rate control and may initiated your normal dosing of dofetilide here in the emergency department, you do not need to take your at home dose when you return home as we gave it here. Please take an extra dose of Lasix so 40 mg twice per day for 2 days, follow-up with your primary care provider. Take the home dose of Lasix this evening when you return home. Your cardiac workup was negative, there is a question of some mild infiltrate in the lungs but you did not have any respiratory distress or low O2 readings warranting any admission to the hospital. Please follow-up with your cardiology team as you have expressed desire for further ablation, you may need an updated echocardiogram. Please return to the emergency department for any further tacky arrhythmias, respiratory distress, increased peripheral swelling and weight gain, chest pain. Discharge Data Discharge Date/Time-TO BE ENTERED AT DEPARTURE: 01/17/24 20:01 HPI General Date/Time Provider Initiated Documentation: 01/17/24 15:26 . HPI Narrative: 69 year-old male presents to ED today by POV/ambulating with a chief complaint of fast heart beat- with a cramp in his L chest this morning that he took a nitro for- spontaneously resolved with onset around 1100 this morning. Quality described as mild CP, otherwise no symptoms since- patient has atrial fibrillation, has had to undergo multiple cardioversions, history of ablation, takes Lasix and spironolactone- often holds his fluid overload in belly and upper extremities, no radiation to active chest pain, shortness of breath, fever, cough, nausea/vomiting, dizziness, visual changes, near fainting. Severity is described as 0/10 for pain. Palliating factors include nothing attempted. Provoking factors include nothing specific. Patient is anticoagulated. Related Data Home Medications Medication Instructions Recorded Confirmed albuterol sulfate 90 mcg/actuation 2 puff inhalation Q6H PRN 08/12/23 01/17/24 aerosol inhaler apixaban 5 mg tablet (Eliquis) 5 mg PO BID 08/12/23 01/17/24 blood sugar diagnostic 08/12/23 01/17/24 clotrimazole 1 %-betamethasone See Rx Instructions topical 08/12/23 01/17/24 0.05 % cream-zinc ox 20 % paste .COMPLEX topical dofetilide 125 mcg capsule 125 mcg PO BID 08/12/23 01/17/24 dulaglutide 4.5 mg/0.5 mL 4.5 mg subcut QWEEK 08/12/23 01/17/24 subcutaneous pen injector (Trulicity) epinephrine 0.3 mg/0.3 mL 0.3 mg IM ONCE PRN 08/12/23 01/17/24 injection, auto-injector (EpiPen 2-Keith) ezetimibe 10 mg tablet 10 mg PO DAILY 08/12/23 01/17/24 furosemide 40 mg tablet 40 mg PO DAILY 08/12/23 01/17/24 insulin aspart U-100 100 unit/mL See Rx Instructions subcut DAILY 08/12/23 01/17/24 (3 mL) subcutaneous pen (Novolog FlexPen U-100 Insulin aspart) insulin detemir U-100 100 unit/mL 50 unit subcut BID 08/12/23 01/17/24 (3 mL) subcutaneous pen lisinopril 2.5 mg tablet 2.5 mg PO DAILY 08/12/23 01/17/24 lorazepam 1 mg tablet 1 mg PO QHS PRN 08/12/23 01/17/24 metoprolol succinate 25 mg 50 mg PO BID 08/12/23 01/17/24 tablet,extended release 24 hr nitroglycerin 0.4 mg sublingual 0.4 mg sublingual Q5M PRN 08/12/23 01/17/24 tablet omeprazole 20 mg capsule,delayed 20 mg PO DAILY 08/12/23 01/17/24 release sildenafil (pulm.hypertension) 20 20 mg PO DIRECTED 08/12/23 01/17/24 mg tablet spironolactone 25 mg tablet 12.5 mg PO DAILY 08/12/23 01/17/24 tacrolimus 0.1 % topical ointment 1 applic topical BID 08/12/23 01/17/24 tamsulosin 0.4 mg capsule 0.8 mg PO DAILY 08/12/23 01/17/24 celecoxib 200 mg capsule (Celebrex) 200 mg PO DAILY 08/28/23 01/17/24 oxycodone-acetaminophen 5 mg-325 1 tab PO TID PRN 08/28/23 01/17/24 mg tablet (Percocet) Allergies Allergy/AdvReac Type Severity Reaction Status Date / Time adhesive Allergy Unknown Other (See Verified 01/17/24 15:26 Comment) bee venom protein (honey bee) Allergy Unknown Anaphylaxis Verified 01/17/24 15:26 atorvastatin AdvReac Unknown Other (See Verified 01/17/24 15:26 Comment) losartan AdvReac Unknown Other (See Verified 01/17/24 15:26 Comment) simvastatin AdvReac Unknown Other (See Verified 01/17/24 15:26 Comment) General Stated Complaint: Chest Pain MIGUEL: 2 Review of Systems All systems reviewed & are unremarkable except as noted in HPI and below Exam Narrative Exam Narrative: GENERAL APPEARANCE: Well-nourished, non-toxic, awake and alert, atraumatic, no acute distress. SKIN: Warm, pink, dry, intact, without rashes/lesions/ulcerations. HEAD: Normocephalic, atraumatic, normal hair distribution for gender/age. EYES: Pupils PERRLA, EOMs intact without nystagmus, normal conjunctiva, no exudates on lids/lashes. ENT: Nares patent, no circumoral cyanosis, no facial swelling NECK: Supple, trachea midline, painless cervical ROM. LUNGS/CHEST: Lungs CTA bilaterally- no rales at bases, non-labored respirations, normal A/P diameter, symmetrical expansion, no chest wall deformity HEART (CV/PV): irregular rate and rhythm without murmur, no peripheral edema, no JVD. ABDOMEN: Soft, non-distended, no guarding, no tenderness, no anasarca. MSK: Normal ROM, no swelling/deformity to bilateral UEs or LEs, moving all extremities without weakness, no cyanosis, spine midline without tenderness, normal curvature. NEURO: Mental Status AAOx4 - alert to person, place, time, events No facial droop, no forehead involvement. Motor: No focal weakness - strength 5/5 in bilateral UEs and LEs, proximal and distal, symmetric. Sensory: sensation intact to light touch globally. Gait normal: patient ambulated without ataxia into ED room. PSYCH: euthymic, cooperative, pleasant, appropriate speech Course Vital Signs Vital signs: Vital Signs Temperature 36.4 C L 01/17/24 15:20 Pulse 146 H 01/17/24 15:20 Respiratory Rate 18 01/17/24 15:20 Pulse Oximetry 96 01/17/24 15:20 Temperature 36.4 C L 01/17/24 15:20 Temperature Source Temporal Artery Scan 01/17/24 15:20 Pulse 146 H 01/17/24 15:20 Respiratory Rate 18 01/17/24 15:20 Respiratory Effort Short of Breath 01/17/24 15:27 Blood Pressure Position Sitting 01/17/24 15:20 Pulse Oximetry 96 01/17/24 15:20 Oxygen Delivery Method Room Air 01/17/24 15:20 Oxygen Flow Rate 0 01/17/24 15:20 Medical Decision Making This dictation utilizes [id number] dictation software and may contain unedited grammatical errors. 69 year-old male presents to ED today by POV/ambulating with a chief complaint of fast heart beat- with a cramp in his L chest this morning that he took a nitro for- spontaneously resolved with onset around 1100 this morning. Quality described as mild CP, otherwise no symptoms since- patient has atrial fibrillation, has had to undergo multiple cardioversions, history of ablation, t akes Lasix and spironolactone- often holds his fluid overload in belly and upper extremities, no radiation to active chest pain, shortness of breath, fever, cough, nausea/vomiting, dizziness, visual changes, near fainting. Severity is described as 0/10 for pain. Palliating factors include nothing attempted. Provoking factors include nothing specific. Patient is anticoagulated. Patients' medical history: T2DM, atrial fibrillation, CHF, 6 history of CVA, cardiomyopathy, asthma, anxiety. Family and social history: Noncontributory. Pertinent exam findings / vital signs include no Rales at bases of lungs, denies chest pain, irregular tachyarrhythmia, benign abdomen without anasarca, neuro intact, nontoxic vitals. Differential / pathologies of concern include atrial fibrillation with RVR, ACS, pneumonia, CHF exacerbation. Diagnostic studies of: -CBC, CMP, troponin I serial, BNP, magnesium, lipase, TSH, EKG, x-ray chest. -CBC completely benign -CMP is benign and baseline -Magnesium within normal limits -Serial troponins negative-do not suspect ACS -BNP is 1000 without comparison -Lipase negative -TSH within normal limits -EKG shows atrial fibrillation with RVR [address] changes or bundle branch block, irregularly irregular, normal intervals, left axis deviation, no STEMI -Chest x-ray shows left lung base infiltrate, do not suspect pneumonia and likely mild fluid overload without hypoxia Interventions of: -Patient had initial mildly soft blood pressure, was given fluid bolus and check manual blood pressure with normotensive confirmed. Gave 20 mg diltiazem IV w ith rate control adequately achieved for the remainder of the visit, I did give him his evening dose of dofetilide-advised the patient take an extra dose of his Lasix so 40 mill equivalents twice daily for the next 2 days and follow-up with his disk operator and primary care provider. Patient was observed spending 90% of the time in 80s and 90s, not 105 on discharge. ED Course/Assessment/Plan: 69-year-old male patient presents without chest pain, has been having A-fib with RVR today-denies chest pain, endorses mild shortness of breath, does not have pedal edema but does subjectively hold his edema when fluid overloaded in his stomach and arms. He does not have overt peripheral edema here, multiple troponins are negative, at onset this morning he did have a cramp in his left chest and took 1 dose of nitro. He has some questionable mild infiltrate in the left base on chest x-ray, he was given 1 dose of 20 mg diltiazem with good rate control remaining greater than 90% of the time under 100 bpm, I plan to have him discharge and take an extra dose of 40 mg Lasix in the evenings for the next 2 days and talk to his primary care provider on Friday. He wishes to follow-up with his disk operator for possible repeat ablation. He was given his regular home dose of dofetilide here in the department, no acute complications throughout the visit, strict return criteria for further episodes of chest pain, uncontrolled tachyarrhythmia, shortness of breath, developing frothy sputum cough, having to sleep upright. Findings not consistent with hypoxic respiratory failure, pulmonary edema, CHF exacerbation with hypoxia, ACS, uncontrolled tachyarrhythmia. Disposition of Atrial Fibrillation with Rapid Ventricular Response. Patient verbalized understanding of the plan and return to ED criteria and engaged in shared decision making. Medical Records Medical records reviewed: Yes I reviewed the patient's medical records. Imaging Data Radiologic Study: Attestation: I personally reviewed and interpreted this imaging study as follows: Imaging: X-Ray Radiologist's impression: EXAM: XR PORTABLE CHEST AP CLINICAL HISTORY: arrhythmia. TECHNIQUE: 2D digital imaging was performed. COMPARISON: CR XR CHEST 2V PA LATERAL from 01/13/2024 FINDINGS: Single AP portable view. Heart size is upper normal. The mediastinum is not widened. There is now mild infiltrate in left lung base. No obvious pleural effusions on this single view study. Right lung remains clear. IMPRESSION: Left lung base infiltrate. Lab Data Lab results reviewed: Yes I reviewed the patient's lab results. Labs: Laboratory Tests Range/Units 01/17/24 01/17/24 15:35 18:40 WBC (4.4-10.8) 10^3/uL 7.92 RBC (4.36-5.78) 10^6/uL 4.67 Hgb (13.5-17.5) g/dL 14.2 Hct (40.0-50.0) % 42.0 MCV (80-95) fL 90 MCH (27.0-33.0) pg 30.4 MCHC (32.0-36.0) % 33.8 RDW (11.8-14.1) % 13.7 Plt Count (130-400) 10^3/uL 226 MPV (8.0-11.0) fL 9.5 Immature Gran % % 0.5 Neutrophils % % 71.2 Lymphocytes % % 16.8 Monocytes % % 9.1 Eosinophils % % 1.6 Basophils % % 0.8 Nucleated RBC % (0.0-0.3) % 0.0 Absolute Neutrophils (1.2-6.7) 10^3/uL 5.64 Absolute Lymphocytes (1.2-3.4) 10^3/uL 1.33 Absolute Monocytes (0.1-0.8) 10^3/uL 0.72 Absolute Eosinophils (0.0-0.7) 10^3/uL 0.13 Absolute Basophils (0.0-0.2) 10^3/uL 0.06 Sodium (136-145) mmol/L 141 Potassium (3.5-5.1) mmol/L 3.5 Chloride (98-107) mmol/L 105 Carbon Dioxide (21.0-32.0) mmol/L 26.4 Anion Gap (3-11) mmol/L 9.6 BUN (7-18) mg/dL 15 Creatinine (0.70-1.30) mg/dL 1.0 Est GFR (CKD-EPI 2020) (mL/min/1.73m2) 80.47 Glucose (74-106) mg/dL 161 H Calcium (8.5-10.1) mg/dL 8.5 Magnesium (1.8-2.4) mg/dL 1.8 Total Bilirubin (0.2-1.0) mg/dL 0.45 AST (15-37) U/L 14 L ALT (16-63) U/L 23 Alkaline Phosphatase (46-116) U/L 145 H Troponin I (< or =60) ng/L < 50 < 50 NT-Pro-B Natriuret Pep (<300) pg/mL 1001 H Total Protein (6.4-8.2) g/dL 6.9 Albumin (3.4-5.0) g/dL 3.2 L Lipase (16-77) U/L 13 L TSH (0.36-3.74) uIU/mL 1.23 Quality:SDOH Health Related Social Needs: No Data to Display PFSH All Active Problems (Updated 01/17/24 @ 19:14 by TOBY Acevedo) Atrial fibrillation with rapid ventricular response (Acute) Atrial fibrillation with rapid ventricular response (Acute) Lumbar radiculopathy (Acute) Medical History (Updated 01/17/24 @ 19:14 by TOBY Acevedo) Aftercare following left elbow joint replacement surgery History of transesophageal echocardiography (IVÁN) History of cardioversion Type 2 diabetes mellitus Smoker Prostate cancer Nicotine dependence Long-term use of high-risk medication Ischemic myocardial dysfunction Insomnia Impotence Hypertensive disorder Hyperlipemia Heart failure with reduced ejection fraction GERD (gastroesophageal reflux disease) Fatigue Dizziness Depressive disorder CVA (cerebral vascular accident) Cardiomyopathy Atypical chest pain Atrial fibrillation with rapid ventricular response Asthma Anxiety Surgical History History of esophagogastroduodenoscopy (EGD) Hx of cardiac cath H/O cardiac radiofrequency ablation H/O colonoscopy Family History (Updated 08/12/23 @ 14:14 by Veto French RN) Sister Diabetes Brother Myocardial infarct Father Myocardial infarct Sister Suicide Mother Suicide Social History Smoking/Tobacco Use Status: Current every day Tobacco Type: cigarettes Smoking packs per day: 0.25 Smoking cigarettes per day: 5.0 Smoking risk assessment performed?: Yes Alcohol Intake: former Year quit: 2012 Drug use: Daily Substance use type: marijuana Housing: house
[2024-01-17 15:43] LABS: Abs Immature Grans 0.04 10^3/uL (0.0-0.06); Absolute Basophil Count 0.06 10^3/uL (0.0-0.2); Absolute Eosinophil Count 0.13 10^3/uL (0.0-0.7); Absolute Lymphocyte Count 1.33 10^3/uL (1.2-3.4); Absolute Monocyte Count 0.72 10^3/uL (0.1-0.8); Absolute Neutrophil Count 5.64 10^3/uL (1.2-6.7); Basophils % 0.8 %; Eosinophils % 1.6 %; HGB 14.2 g/dL (13.5-17.5); Immature Grans % 0.5 %; Lymphocytes % 16.8 %; MCH 30.4 pg (27.0-33.0); MCHC 33.8 % (32.0-36.0); MCV 90 fL (80-95); MPV 9.5 fL (8.0-11.0); Monocytes % 9.1 %; Neutrophils % 71.2 %; Platelet Count 226 10^3/uL (130-400); RBC 4.67 10^6/uL (4.36-5.78); RDW 13.7 % (11.8-14.1); RDW-SD 45.4 fL; WBC 7.92 10^3/uL (4.4-10.8)
[2024-01-17] MEDS: Normal Saline 500 ML IV (15:45)
[2024-01-17 16:08] LABS: ALT 23 U/L (16-63); AST 14 U/L (15-37); Albumin 3.2 g/dL (3.4-5.0); Alkaline Phosphatase 145 U/L (46-116); Anion Gap 9.6 mmol/L (3-11); BUN 15 mg/dL (7-18); Bilirubin, Total 0.45 mg/dL (0.2-1.0); CO2 26.4 mmol/L (21.0-32.0); Calcium 8.5 mg/dL (8.5-10.1); Chloride 105 mmol/L (98-107); Estimated GFR 80.47 (mL/min/1.73m2); Glucose 161 mg/dL (74-106); Lipase 13 U/L (16-77); Magnesium 1.8 mg/dL (1.8-2.4); NT-proBNP 1001 pg/mL (<300); Potassium 3.5 mmol/L (3.5-5.1); Sodium 141 mmol/L (136-145); TSH (W/Ref FT4) 1.23 uIU/mL (0.36-3.74); Total Protein 6.9 g/dL (6.4-8.2); Troponin I < 50 ng/L (< or =60)
--- NOTE | 2024-01-17 16:22 | DI.VRAD_ITS ---
PROCEDURE INFORMATION: Exam: XR Chest Exam date and time: 01/17/2024 4:05 PM Age: 69 years old Clinical indication: Other: Arrhythmia TECHNIQUE: Imaging protocol: Radiologic exam of the chest. Views: 1 view. COMPARISON: CR XR CHEST 2V PA LATERAL 01/13/2024 2:00 PM FINDINGS: Lungs: There is atelectasis of the left lung base. No focal consolidation. Pleural spaces: Unremarkable. No pleural effusion. No pneumothorax. Heart/Mediastinum: Unremarkable. No cardiomegaly. Vasculature: Unfolding of the thoracic aorta. Bones/joints: Moderate degenerative disease of bilateral acromioclavicular joints. IMPRESSION: No acute cardiopulmonary process. Dictated and Authenticated by: Renzo Epps MD. Ordering:RASHAUN Lundberg MD
[2024-01-17] MEDS: Normal Saline 1,000 ML 150 ML IV (16:31)
[2024-01-17] MEDS: dilTIAZem 25 MG/5 ML VIAL 20 MG IVP (16:45)
[2024-01-17 19:06] LABS: Troponin I < 50 ng/L (< or =60)
== END 2024-01-17 20:01 | disposition home or self-care (01) ==
PROVIDERS: Emergency Provider Physician Assistant
DX: I48.91 Unspecified atrial fibrillation (principal); I11.0 Hypertensive heart disease with heart failure; I50.9 Heart failure, unspecified; E11.9 Type 2 diabetes mellitus without complications; E78.5 Hyperlipidemia, unspecified; Z79.01 Long term (current) use of anticoagulants; Z79.4 Long term (current) use of insulin; F17.210 Nicotine dependence, cigarettes, uncomplicated; Z86.73 Personal history of transient ischemic attack (TIA), and cerebral infarction without residual deficits
CPT/HCPCS: 80053; 83690; 93005; 96361; 96374; 99285; 71045; 83735; 83880; 84443; 84484; 85025; 93010; 99284

== ENCOUNTER 2024-10-20 15:36 | Outpatient (CLI) | payer MEDICARE, MEDICAID, SELFPAY ==
--- NOTE | 2024-10-20 14:47 | DI.RAD_ITS ---
Exam(s) XR SHOULDER RT COMPLETE 2+V EXAM: XR SHOULDER RT COMPLETE 2+V INDICATION: F/U FRACTURE. COMPARISON: CR,XR XR PORTABLE CHEST AP from 01/17/2024. No prior shoulder exam available. TECHNIQUE: 2D digital imaging was performed. Two views. FINDINGS: There is a subacute appearing fracture at the surgical neck of the humerus. There is mild comminutio n. There is some bony bridging. There is some inferior subluxation of the humeral head with respect to the glenoid. DATA REPOSITORY: RADIATION DOSE DELIVERED:
== END 2024-10-20 15:37 | disposition home or self-care (01) ==
LOC: DIORS 15:36
PROVIDERS: PCP Family Medicine; Referring Provider Family Medicine; Visit Provider Student in an Organized Health Care Education/Training Program
DX: S42.201A Unspecified fracture of upper end of right humerus, initial encounter for closed fracture (principal); X58.XXXA Exposure to other specified factors, initial encounter; M25.611 Stiffness of right shoulder, not elsewhere classified; I48.91 Unspecified atrial fibrillation; J44.9 Chronic obstructive pulmonary disease, unspecified; F17.210 Nicotine dependence, cigarettes, uncomplicated
CPT/HCPCS: 99214; 73030